=== PATIENT | male | born 1985 | race Caucasian/White ===

== ENCOUNTER 2020-11-24 14:24 | Emergency (ER) | payer OTHER ==
[~2020-11-24] VITALS: Ht 185.4 cm; Wt 126.9 kg
--- NOTE | 2020-11-24 15:07 | RAD ---
EXAM: Right hand, 3 views. HISTORY: Hand injury. COMPARISON: None. FINDINGS: 3 views of the right hand are obtained. There is no fracture, dislocation or subluxation. T here is a small sclerotic lesion within the fifth proximal phalanx, likely due to a bone island or me lorheostosis. There is no suspicious osseous lesion. There is no foreign body. IMPRESSION: No acute osseous finding. Electronically signed by: Bernadine Mello MD (11/24/2020 3:04 PM) [id number]
--- NOTE | 2020-11-24 15:15 | PHYS DOC ---
Past History Past Medical History: No Pertinent History (PAMELA WILLIAMSON APRN) Past Surgical History: Appendectomy, Other Additional Past Surgical Histo: right knee surgery, right shoulder surgery, lip surgery (PAMELA WILLIAMSON APRN) Alcohol Use: Occasionally (PAMELA WILLIAMSON APRN) General Adult EDM: Chief Complaint: HAND PROBLEM HPI: HPI: Patient is a 35-year-old male who presents with right hand pain. Patient was at the gym this morning when a under an 185 pound barbell fell on his hand. Patient is reporting pain to right thumb and wrist. Patient denies taking anything for pain at home. (PAMELA WILLIAMSON APRN) Review of Systems: Review of Systems: Constitutional: Denies fever or chills Eyes: Denies change in visual acuity HENT: Denies nasal congestion or sore throat Respiratory: Denies cough or shortness of breath Cardiovascular: Denies chest pain or edema GI: Denies abdominal pain, nausea, vomiting, bloody stools or diarrhea : Denies dysuria Musculoskeletal: Denies back pain or joint pain Integument: Denies rash Neurologic: Denies headache, focal weakness or sensory changes Endocrine: Denies polyuria or polydipsia Lymphatic: Denies swollen glands Psychiatric: Denies depression or anxiety (PAMELA WILLIAMSON APRN) Physical Exam: PE: Constitutional: Well developed, well nourished, no acute distress, non-toxic appearance. [] HENT: Normocephalic, atraumatic, bilateral external ears normal, oropharynx moist, no oral exudates, nose normal. [] Eyes: PERRLA, EOMI, conjunctiva normal, no discharge. [] Neck: Normal range of motion, no tenderness, supple, no stridor. [] Cardiovascular:Heart rate regular rhythm, no murmur [] Lungs & Thorax: Bilateral breath sounds clear to auscultation [] Abdomen: Bowel sounds normal, soft, no tenderness, no masses, no pulsatile masses. [] Skin: Warm, dry, no erythema, no rash. [] Back: No tenderness, no CVA tenderness. [] Extremities: tenderness to anatomic snuffbox Neurologic: Alert and oriented X 3, normal motor function, normal sensory function, no focal deficits noted. [] Psychologic: Affect normal, judgement normal, mood normal. [] (PAMELA WILLIAMSON APRN) Current Patient Data: Vital Signs: Vital Signs Date Time Temp Pulse Resp B/P (MAP) Pulse Ox O2 Delivery O2 Flow Rate FiO2 11/24/20 14:36 97.7 75 16 139/84 (102) 96 Room Air (PAMELA WILLIAMSON APRN) EKG: EKG: [] (PAMELA WILLIAMSON APRN) Radiology/Procedures: Radiology/Procedures: [] (PAMELA WILLIAMSON APRN) Heart Score: Risk Factors: Risk Factors: DM, Current or recent (<one month) smoker, HTN, HLP, family history of CAD, obesity. Risk Scores: Score 0 - 3: 2.5% MACE over next 6 weeks - Discharge Home Score 4 - 6: 20.3% MACE over next 6 weeks - Admit for Clinical Observation Score 7 - 10: 72.7% MACE over next 6 weeks - Early Invasive Strategies (PAMELA WILLIAMSON APRN) Course & Med Decision Making: Course & Med Decision Making Pertinent Labs and Imaging studies reviewed. (See chart for details) []Patient is a 35-year-old male who presents with right hand pain. Patient was at the gym this morning when a under an 185 pound barbell fell on his hand. Patient is reporting pain to right thumb and wrist. Patient denies taking a nything for pain at home. Patient refusing pain medications at this time. Tenderness to anatomic snuffbox, pain with supination. Xray ordered. Xray IMPRESSION: No acute osseous finding. Thumb spica splint placed and follow up with ortho in two weeks for repeat xray. (PAMELA WILLIAMSON APRN) Dragon Disclaimer: Dragcarol Disclaimer: This electronic medical record was generated, in whole or in part, using a voice recognition dictation system. (PAMELA WILLIAMSON APRN) Departure Departure: Impression: Primary Impression: Wrist pain, acute Qualified Codes: M25.531 - Pain in right wrist Disposition: 01 DC HOME SELF CARE/HOMELESS Condition: GOOD Referrals: PCP,FAROOQ (PCP) Patient Instructions: Wrist Pain, [id number] Additional Instructions: You were seen in the emergency room today for pain to your right wrist. The x- ray of your wrist was negative for a fracture. We will apply a thumb spica splint and have you follow-up with your PCP for repeat x-ray in 2 weeks to rule out fracture. You can use ibuprofen and Tylenol at home for discomfort. If you have worsening symptoms or concerns please return to the emergency room. EMERGENCY DEPARTMENT GENERAL DISCHARGE INSTRUCTIONS Thank you for coming to [facility] (ED) today and trusting us with you care. We trust that you had a positivie experience in our Emergency Department. If you wish to speak to the department management, you may call the director at [phone]. YOUR FOLLOW UP INSTRUCTIONS ARE FOLLOWS: 1. Do you have a private Doctor? If you do not have a private doctor, please ask for a resource list of physicians or clinics that may be able to assist you with follow up care. 2. The Emergency Physician has interpreted your x-rays. The X-Ray specialist will also review them. If there is a change in the findings, you will be notified in 48 hours when at all possible. 3. A lab test or culture has been done, your results will be reviewed and you will be notified if you need a change in treatment. ADDITIONAL INSTRUCTIONS AND INFORMATION: 1. Your care today has been supervised by a physician who is specially trained in emergency care. Many problems require more than one evaluation for a complete diagnosis and treatment. We recommend that you schedule your follow up appointment as recommended to ensure complete treatment of you illness or injury. If you are unable to obtain follow up care and continue to have a problem, or if your condition worsens, we recommend that you return to the ED. 2. We are not able to safely determine your condition over the phone nor are we able to give sound medical advice over the phone. For these safety reasons, if you call for medical advice we will ask you to come to the ED for further evaluation. 3. If you have any questions regarding these discharge instructions please call the ED at [phone]. SAFETY INFORMATION: In the interest of safety, wellness, and injury prevention; we encourage you to wear your sealbelt, if you smoke; quite smoking, and we encourage family to use a pr otective helmet for bicycling and other sporting events that present an increased risk for head injury. IF YOUR SYMPTOMS WORSEN OR NEW SYMPTOMS DEVELOP, OR YOU HAVE CONCERNS ABOUT YOUR CONDITION; OR IF YOUR CONDITION WORSENS WHILE YOU ARE WAITING FOR YOUR FOLLOW UP APPOINTMENT; EITHER CONTACT YOUR PRIMARY CARE DOCTOR, THE PHYSICIAN WHOSE NAME AND NUMBER YOU WERE GIVEN, OR RETURN TO THE ED IMMEDIATELY. Attending Signature Attending Signature I have reviewed the PA/ARMHOLE RAISER LOCKSTITCH's note and plan of care. I was available for consultation as needed during the patient's visit in the emergency department. I agree with the clinical impression, plan, and disposition. (SG TALAMANTES DO) PAMELA WILLIAMSON APRN Nov 24, 2020 15:15 SG TALAMANTES DO Nov 25, 2020 16:29
[2020-11-24 16:14] VITALS: BP 136/63
== END 2020-11-24 16:20 | disposition home or self-care (01) ==
LOC: ER 14:24
DX: M25.531 Pain in right wrist (principal); W20.8XXA Other cause of strike by thrown, projected or falling object, initial encounter; Y93.89 Activity, other specified; Y92.89 Other specified places as the place of occurrence of the external cause; Y99.8 Other external cause status
CPT/HCPCS: 29125; 73130; 99283